=== PATIENT | female | born 1985 | race Hispanic/Latino ===

== ENCOUNTER 2017-01-19 11:44 | Emergency (ER) | payer MEDICAID ==
[2017-01-19 11:45] VITALS: BMI 41.1
[2017-01-19 12:06] VITALS: BP 120/74; PULSE 70; RESP 18; TEMP 98.1; O2SAT 98
--- NOTE | 2017-01-19 14:42 | ED PDOC ---
HPI: Back Chief Complaint (Nursing): Female Genitourinary Chief Complaint (Provider): , 10 weeks gestation, back pain, lower abdominal pain History Per: Patient History/Exam Limitations: no limitations Onset/Duration Of Symptoms: Hrs (Today when waking up) Current Symptoms Are (Timing): Still Present Full Body Front + Back: 1 - Pain 2 - Radiation 3 - radiation Quality Of Discomfort: Sharp Severity: Moderate Pain Scale Rating Of: 5 Previous Symptoms: None Exacerbating Factor(s): Movement Additional Complaint(s): Pt states she also had some spotting today. Pt concerned about UTI becuase she reports similar pain 2 weeks ago and was told she had UTI. Pts previous culture was negative. Pt had 7 week IUP on previous US and has follow-up with OB in 5 days Past Medical History Reviewed: Historical Data, Nursing Documentation, Vital Signs Vital Signs: Last Vital Signs Temp 98.1 F 01/19/17 12:03 Pulse 70 01/19/17 12:03 Resp 18 01/19/17 12:03 BP 120/74 01/19/17 12:03 Pulse Ox 98 01/19/17 12:03 - Medical History PMH: No Chronic Diseases Denies: Depression - Surgical History Surgical History: No Surg Hx - Family History Family History: States: Unknown Family Hx - Living Arrangements Living Arrangements: With Family - Social History Current smoker - smoking cessation education provided: No Alcohol: None Drugs: Denies - Home Medications Home Medications: Ambulatory Orders Medication Instructions Recorded Nitrofurantoin Macrocrystals 100 mg PO BID #13 cap 12/29/16 [Macrobid] - Allergies Allergies/Adverse Reactions: Allergies Allergy/AdvReac Type Severity Reaction Status Date / Time No Known Allergies Allergy Verified 01/19/17 12:03 Review of Systems ROS Statement: Except As Marked, All Systems Reviewed And Found Negative Gastrointestinal: Negative for: Nausea, Vomiting, Abdominal Pain, Diarrhea Genitourinary Female: Positive for: Vaginal Bleeding, Pelvic Pain Musculoskeletal: Positive for: Back Pain Physical Exam - Reviewed Nursing Documentation Reviewed: Yes Vital Signs Reviewed: Yes - Physical Exam Appears: Positive for: Well, Non-toxic, No Acute Distress Head Exam: Positive for: ATRAUMATIC, NORMAL INSPECTION, NORMOCEPHALIC Skin: Positive for: Normal Color, Warm, DRY Eye Exam: Positive for: Normal appearance ENT: Positive for: Normal ENT Inspection Neck: Positive for: Normal, Painless ROM Cardiovascular/Chest: Positive for: Regular Rate, Rhythm Respiratory: Positive for: Normal Breath Sounds. Negative for: Accessory Muscle Use Gastrointestinal/Abdominal: Positive for: Normal Exam, Bowel Sounds, Soft. Negative for: Tenderness Back: Positive for: Normal Inspection Extremity: Positive for: Normal ROM Neurologic/Psych: Positive for: Alert, Oriented - Laboratory Results Result Diagrams: 01/19/17 14:55 01/19/17 14:55 - ECG O2 Sat by Pulse Oximetry: 98 Medical Decision Making Medical Decision Making: type O (+) Disposition - Clinical Impression Clinical Impression: Abdominal pain in - Patient ED Disposition Is Patient to be Admitted: No Counseled Patient/Family Regarding: Diagnosis, Need For Followup - Disposition Referrals: [facility] [Outside] [facility] [Outside] Disposition: Routine/Home Disposition Time: 18:19 Condition: GOOD Additional Instructions: Please follow-up with OB. Instructions: Abdominal Pain in (ED)
[2017-01-19 15:41] LABS: BASO % 0.3 % (0.0-2.0); EOS # 0.2 K/uL (0.0-0.7); HEMATOCRIT 39.6 % (34.0-47.0); LYMPH # 2.2 K/uL (1.0-4.3); LYMPH % 25.3 % (20.0-40.0); MEAN CELL VOLUME 90.7 fl (81.0-99.0); MEAN CORPUSCULAR HEMOGLOBIN 30.2 pg (27.0-31.0); MEAN CORPUSCULAR HGB CONC 33.3 g/dL (33.0-37.0); MEAN PLATELET VOLUME 8.6 fl (7.2-11.7); MONO # 0.6 K/uL (0.0-0.8); MONO % 6.8 % (0.0-10.0); NEUT # 5.6 K/uL (1.8-7.0); NEUT % 65.6 % (50.0-75.0); WHITE BLOOD COUNT 8.5 K/uL (4.8-10.8)
[2017-01-19 15:46] LABS: ALKALINE PHOSPHATASE 69 U/L (38-126); ALT/SGPT 31 U/L (9-52); AST/SGOT 27 U/L (14-36); BILIRUBIN,TOTAL 0.3 mg/dl (0.2-1.3); BLOOD UREA NITROGEN 14 mg/dl (7-17); CARBON DIOXIDE 23 mmol/L (22-30); CHLORIDE 104 mmol/L (98-107); GFR AFRICAN-AMERICAN > 60; GLUCOSE,RANDOM 92 mg/dL (65-105); POTASSIUM 4.2 MMOL/L (3.6-5.0); SODIUM 139 mmol/l (132-148); TOTAL PROTEIN 6.9 G/DL (6.3-8.2)
[2017-01-19 15:58] LABS: PARTIAL THROMBOPLASTIN TIME 25.7 SECONDS (23.3-32.5)
[2017-01-19 16:55] LABS: RBC URINE 1 /hpf (0-3); URINE BACTERIA FEW (<OCC); URINE BILIRUBIN NEGATIVE (NEGATIVE); URINE BLOOD NEGATIVE (NEGATIVE); URINE COLOR YELLOW (YELLOW); URINE GLUCOSE (UA) NEG (Normal); URINE KETONE NEGATIVE (NEGATIVE); URINE LEUKOCYTE ESTERASE NEG Leu/uL (Negative); URINE PROTEIN NEGATIVE (NEGATIVE); URINE UROBILINOGEN 0.2-1.0 mg/dL (0.2-1.0); WBC URINE 1 /hpf (0-5)
== END 2017-01-19 18:28 | disposition home or self-care (01) ==
LOC: H.ER 11:44
DX: O26.891 Other specified pregnancy related conditions, first trimester (principal); Z3A.10 10 weeks gestation of pregnancy

== ENCOUNTER 2017-04-07 23:23 | Emergency (ER) | payer MEDICAID ==
[2017-04-08 00:29] VITALS: BMI 41.1
== END 2017-04-08 01:55 | disposition home or self-care (01) ==
LOC: H.EROB2 23:23
DX: O26.852 Spotting complicating pregnancy, second trimester (principal); Z3A.21 21 weeks gestation of pregnancy

== ENCOUNTER 2017-05-28 00:30 | Emergency (ER) | payer MEDICAID ==
[2017-05-28 01:28] VITALS: BMI 42.6
[2017-05-28 02:44] LABS: SQUAMOUS EPITHIAL 3 /hpf (0-5); URINE BACTERIA RARE (<OCC); URINE BILIRUBIN NEGATIVE (NEGATIVE); URINE BLOOD NEGATIVE (NEGATIVE); URINE CLARITY CLOUDY (Clear); URINE COLOR YELLOW (YELLOW); URINE GLUCOSE (UA) NEG (Normal); URINE LEUKOCYTE ESTERASE LARGE Leu/uL (Negative); URINE NITRATE NEGATIVE (NEGATIVE); URINE PROTEIN NEGATIVE (NEGATIVE); URINE UROBILINOGEN 0.2-1.0 mg/dL (0.2-1.0)
--- NOTE | 2017-05-28 06:22 | US ---
EXAM: US Uterus transabdominal, Limited CLINICAL HISTORY: 32 years old, female; Pain; Abdominal pain; Right lower quadrant; ; Patient HX: Abd pain; Additional info: Cervical length TECHNIQUE: Real-time transabdominal ultrasound of the maternal uterus (limited) with image documentation. COMPARISON: No relevant prior studies available. FINDINGS: Fetus: Single live intrauterine gestation. cardiac activity detected. Estimated gestational age of 31 weeks 2 days by biparietal diameter. No gross anomaly is appreciated. Position: Cephalic. Cervix: No cervical dilatation or effacement. Cervical length = 5.8 cm. Adnexa: Ovaries not visualized. No adnexal masses. Free fluid: No significant free fluid. IMPRESSION: 1. Single live intrauterine gestation. EXAM: US Uterus transvaginal, Limited CLINICAL HISTORY: 32 years old, female; Pain; Abdominal pain; Right lower quadrant; ; Patient HX: Abd pain; Additional info: Cervical length TECHNIQUE: Real-time transvaginal ultrasound of the maternal uterus (limited) with image documentation. COMPARISON: No relevant prior studies available. FINDINGS: Fetus: Single live intrauterine gestation. cardiac activity detected. Estimated gestational age of 31 weeks 2 days by biparietal diameter. No gross anomaly is appreciated. Position: Cephalic. Cervix: No cervical dilatation or effacement. Cervical length = 5.8 cm. Adnexa: Ovaries not visualized. No adnexal masses. Free fluid: No significant free fluid. IMPRESSION: 1. Single live intrauterine gestation. EXAM: US Abdomen Limited, Appendix CLINICAL HISTORY: 32 years old, female; Pain; Abdominal pain; Right lower quadrant; ; Patient HX: Abd pain; Additional info: Cervical length TECHNIQUE: Real-time ultrasound of the right lower quadrant with image documentation. COMPARISON: No relevant prior studies available. FINDINGS: Appendix: Not visualized. Free fluid: No significant free fluid. IMPRESSION: 1. Nonvisualization of appendix.
--- NOTE | 2017-05-28 06:59 | OBHP ---
Datetime: 05/28/2017 01:30 IP Chief Complaint Other: RLQ pain IP Admit Plan: Observation/Evaluation; Discharge home Admit Comment, IP Provider: CC: "I have pain in my abdomen" HPI: patient is a 32 YO @ 30 2/7 wks comes to [facility] for RLQ abdomen pain. per nnamdi t pain started 11PM on 05/28/17. She describes pain as irregular, it comes and goes, rates it as a 4/10 in pain scale. Patient also notes that she is on her feet all day at work. She endorses good m ovement, no blood noted,no LOF, and denies n/v/d. Last visit to MD was tuesday. 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 Cervix is closed on exam, patient in NAD, monitor catagory I and stable. Patient currently being observed for irratation and contration on monitor. -Given PO fluids -UA and UC sent to lab, follow up with results -observe and reassess Sophie MONTERO OB Hospitalist Addendum: Pt seen and examined by me. Agree w/ above. 32 yo at 30+2 wks w / c/o RLQ pain that started at 11pm, denies nausea, vomiting, and diarrhea. Pt denies dysuria. VE c losed/ at 01:20am. Pt reports that she felt better after PO hydration. NST reactive. [place] rev ealed ctxns. U/s: cervix was closed, 5.8 cm long. Pt discharged home w/ PTL precautions. (ES) Pelvic Type - PN: Adequate Extremities - PN: Normal Abdomen - PN: Normal Back - PN: Not Done Breast - PN: Not Done Lungs - PN: Normal Heart - PN: Normal Thyroid - PN: Not Done Neurologic - PN: Normal HEENT - PN: Normal General - PN: Normal FHR - Baseline A Provider: 130 Membranes, Provider: Intact Gestation - Est Wks by US: 30.2 Vital Signs Provider: Reviewed IP Chief Complaint: Other NICHD Variability Prov Fetus A: Moderate 6-25bpm NICHD Accel Fetus A IP Provider: 15X15 FHR Category Provider Fetus A: Category I Dilatation, Provider: 0 Effacement, Provider: 50 Station, Provider: -3 Genitourinary Exam: Normal DTRs - PN: Not Done
--- NOTE | 2017-05-28 11:44 | OBDCSUM ---
Datetime: 05/28/2017 07:02 Discharged to, Provider: Home Follow up at, Provider: [facility] Disch Instr Activity: Normal activity Disch Instr Diet: Regular Discharge Time: 05/28/2017 07:03 Follow up in weeks, Provider: 06/06/2017 as scheduled Disch Referrals: None Disch Activity Restrictions: No lifting Discharge Diagnosis Prov Other: RLQ pain at 30+ weeks
[2017-05-28 12:31] VITALS: BP 104/45; PULSE 70; RESP 18
== END 2017-05-28 07:00 | disposition home or self-care (01) ==
LOC: H.EROB2 00:30 → H.EROB 01:08 → H.EROB2 07:00
DX: O26.893 Other specified pregnancy related conditions, third trimester (principal); O24.410 Gestational diabetes mellitus in pregnancy, diet controlled; R10.31 Right lower quadrant pain; Z3A.30 30 weeks gestation of pregnancy

== ENCOUNTER 2017-07-29 18:51 | Emergency (ER) | payer MEDICAID ==
[2017-07-29 20:18] VITALS: BMI 41.3
--- NOTE | 2017-07-29 23:11 | US ---
EXAM: US Uterus, Limited CLINICAL HISTORY: 32 years old, female; Pain; Pain indication: Possible labor pain; ; Additional info: 39 w , possible labor TECHNIQUE: Real-time ultrasound of the maternal uterus (limited) with image documentation. COMPARISON: No relevant prior studies available. FINDINGS: biophysical profile is performed. breathing score: 2 tone score: 2 movement score: 2 Amniotic fluid score: 2 Total biophysical profile score: 8/8 Amniotic fluid index measures 13.06, adequate. A single intrauterine gestation is identified in cephalic presentation with the placenta posterior. cardiac activity is identified at a rate of 154 beats per minute. IMPRESSION: Limited ultrasound examination, as detailed above.
== END 2017-07-30 00:10 | disposition home or self-care (01) ==
LOC: H.EROB2 18:51 → H.L&D 23:00 → H.EROB2 07-30 00:10
DX: O47.1 False labor at or after 37 completed weeks of gestation (principal); O24.419 Gestational diabetes mellitus in pregnancy, unspecified control; Z3A.39 39 weeks gestation of pregnancy

== ENCOUNTER 2017-07-30 05:29 | Inpatient (IN) | payer MEDICAID ==
[2017-07-29 20:18] VITALS: BMI 41.3
--- NOTE | 2017-07-30 08:47 | OBHP ---
Datetime: 07/30/2017 06:08 IP Adm Impression: Term, intrauterine IP Admit Plan: Observation/Evaluation Extremities - PN: Normal Abdomen - PN: Normal Lungs - PN: Normal Heart - PN: Normal Neurologic - PN: Normal HEENT - PN: Normal General - PN: Normal FHR - Baseline A Provider: 140 Gestation - Est Wks by US: 39.2 EGA AdmitDate IP: 39.2 Vital Signs Provider: Reviewed; Within Normal Limits IP Chief Complaint: Uterine contractions; Vaginal bleeding NICHD Variability Prov Fetus A: Moderate 6-25bpm NICHD Accel Fetus A IP Provider: 15X15 FHR Category Provider Fetus A: Category I Dilatation, Provider: 2 Effacement, Provider: 20 Station, Provider: -4 Genitourinary Exam: Normal Datetime: 07/29/2017 20:30 Admit Comment, IP Provider: 32 yo F, with IUP at 39.1 weeks, confirmed by u/s at 7 weeks. complicated byA2 GDM. [place]: 08/04/17 care: [facility]. Last visit: today morning was told 1 cm dilated; last u/s wednesday 07/25. CC: pelvic pressure, contractions movement: yes Vaginal bleed: no Loss of fluids: no Last sexual activity: 3 days ago Past OBhx: (as per records) 2 NVD. 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 Denies medical history Denies surgical hx NKDA Medications: glyburide 2.5 BID, PNV. Social Hx: denies tobacco, alcohol, drug use. labs: GBS: neg HbsAg: neg HIV: neg Rubella: immune Blood type: O+ PPD: pos QF: pos GC/CL: neg Varicella: immune Zika: neg ROS: denies chest pain, shortness of breath, nausea, vomiting, diarrhea, dizziness, burning with u rination PE: Gen: AAO x3, no acute distres CV: S1/S2, RRR Resp: clear to auscultation bilaterally, normal resp effort Abd: gravid, +bowel sounds Extremities: no edema, no calf pain Plan: fingerstick biophysical profile observe and monitor for labor 23:30 Re-evaluated fingerstick :82 biophysical profile: 8. PEDRO 13.06, adequate. FHR: 154. Plan: D/c home with [facility] precautions. -Harini Rogers MDPGY1 OB Exam: Patient seen and examined by me. No change in cervical exam changed time of observation. Agree wit h above assessment and plan. DC home Labor precautions Follow-up is scheduled for next OB appointment Comments, ACOG Physical Exam: bpp8/8 IP Hx Assessment: The History has been Reviewed and is Current
--- NOTE | 2017-07-30 08:53 | OBHP ---
Datetime: 07/30/2017 06:08 Admit Comment, IP Provider: 32 yo F, with IUP at 39.2 weeks, confirmed by u/s at 7 weeks. complicated by GDM. [place]: 08/04/17 care: [facility]. Pt was in [facility] last night, was 2cm, 20% effaced, -4 station. Had BPP done: 8. Last clinic visit: yesterday morning; was told 1 cm dilated; last u/s wednesday 07/25. CC: pelvic pressure, contractions, vaginal bleeding movement: yes Vaginal bleed: yes, scant Loss of fluids: no Last sexual activity: 3 days ago Past OBhx: (as per records) 2 NVD. 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 Denies medical history Denies surgical hx NKDA Medications: glyburide 2.5 BID, PNV. Social Hx: denies tobacco, alcohol, drug use. labs: GBS: neg HbsAg: neg HIV: neg Rubella: immune Blood type: O+ PPD: pos QF: pos GC/CL: neg Varicella: immune Zika: neg Biophysical profile 10/6: 8, adequate PEDRO. ROS: denies chest pain, shortness of breath, nausea, vomiting, diarrhea, dizziness, burning with u rination PE: Gen: AAO x3, no acute distres CV: S1/S2, RRR Resp: clear to auscultation bilaterally, normal resp effort Abd: gravid, +bowel sounds Extremities: no edema, no calf pain Plan: [place] and monitor for labor -Harini Rogers MDPGY1 OB hospitalist addendum: Patient seen and examined by me repeat exam at 840 DC home Labor precautions EGA AdmitDate IP: 39.2
--- NOTE | 2017-07-30 12:20 | OBPN ---
Datetime: 07/30/2017 12:16 IP Progress Impression: Reassuring heart rate IP Procedures: Sterile Vag Exam IP Progress Plan: Continue present management; Anesthesia consult Membranes, Provider: Intact Contraction Comments Provider: q5min FHR - Baseline A Provider: 130s-140s IP Progress Note Comment: Pt requesting epidural. Will contact anesthesia. Both MWB/FWB reassuring at this time. Continue current management. Vital Signs Provider: Reviewed; Within Normal Limits NICHD Accel Fetus A IP Provider: 15X15 FHR Category Provider Fetus A: Category I NICHD Variability Prov Fetus A: Moderate 6-25bpm Dilatation, Provider: 5 Effacement, Provider: 90 Station, Provider: -2 NICHD Decel Fetus A IP Provider: None Datetime: 07/30/2017 06:08 Gestation - Est Wks by US: 39.2
[2017-07-30] MEDS ORDERED: Lactated Ringer's 500 ML IV SCH (12:30)
[2017-07-30] MEDS ORDERED: Lactated Ringer's 1,000 ML IV SCH (12:30)
[2017-07-30] MEDS ORDERED: Lidocaine 1% Inj (20ml) ONE (12:41)
[2017-07-30] MEDS ORDERED: Oxytocin 30 units/LR 500ML 30 U/500 ML BAG IV SCH (12:45)
[2017-07-30 12:54] LABS: BASO % 0.1 % (0.0-2.0); EOS % 0.1 % (0.0-4.0); LYMPH # 1.4 K/uL (1.0-4.3); LYMPH % 10.8 % (20.0-40.0); MEAN CELL VOLUME 91.6 fl (81.0-99.0); MEAN CORPUSCULAR HEMOGLOBIN 29.8 pg (27.0-31.0); MEAN CORPUSCULAR HGB CONC 32.6 g/dL (33.0-37.0); MEAN PLATELET VOLUME 9.3 fl (7.2-11.7); MONO # 0.6 K/uL (0.0-0.8); MONO % 4.9 % (0.0-10.0); NEUT # 10.5 K/uL (1.8-7.0); NEUT % 84.1 % (50.0-75.0); RED CELL DISTRIBUTION WIDTH 14.9 % (11.5-14.5); WHITE BLOOD COUNT 12.5 K/uL (4.8-10.8)
[2017-07-30] MEDS ORDERED: Oxycodone/Acetaminophen 5/325 mg Tab PO PRN ×2 (13:27→15:51)
[2017-07-30] MEDS ORDERED: Benzocaine/Menthol SPRAY TOP PRN ×2 (13:27→15:51)
--- NOTE | 2017-07-30 17:07 | RAD ---
HISTORY: Positive PPD and Quantiferon COMPARISON: None available. TECHNIQUE: Chest PA and lateral FINDINGS: Examination limited by habitus. LUNGS: No focal consolidation. Please note that chest x-ray has limited sensitivity for the detection of pulmonary masses. PLEURA: No significant pleural effusion identified. No definite pneumothorax . CARDIOVASCULAR: The cardiomediastinal silhouette appears within normal limits of size. OSSEOUS STRUCTURES: No acute osseous abnormality identified. VISUALIZED UPPER ABDOMEN: Unremarkable. OTHER FINDINGS: None. IMPRESSION: No focal consolidation, significant pleural effusion, or definite pneumothorax identified.
[2017-07-30] MEDS ORDERED: Pneumococcal 23-Valent Vaccine IM ONE (20:00)
[2017-07-30] MEDS ORDERED: Influenza Vaccine 18yr & older 0.5 ML/45 MCG SYR IM ONE (23:30)
[2017-07-31 07:24] LABS: HEMATOCRIT 40.8 % (34.0-47.0); MEAN CELL VOLUME 91.1 fl (81.0-99.0); MEAN CORPUSCULAR HEMOGLOBIN 29.9 pg (27.0-31.0); MEAN CORPUSCULAR HGB CONC 32.8 g/dL (33.0-37.0); RED CELL DISTRIBUTION WIDTH 14.9 % (11.5-14.5); WHITE BLOOD COUNT 12.3 K/uL (4.8-10.8)
--- NOTE | 2017-07-31 10:20 | OBADHP ---
Datetime: 07/30/2017 12:16 Admit Comment, IP Provider: 32 yo F, with IUP at 39.2 weeks, confirmed by U/S at 7 weeks wit h [place] 08/04/17. Patient presented to [facility] with contractions last night and was found to be 2cm dilate d, 20% effaced, and -4 station. BPP: 8. This morning she was checked and was found to be 4cm dilated, complaining of pelvic pressure, contractions, and vaginal bleeding. Reports good movement. Den ies loss of fluid. Last sexual activity 3 days ago Past OBhx: 2 NVD, full term. 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 Denies medical history Denies surgical hx NKDA Medications: glyburide 2.5 BID, PNV. Social Hx: denies tobacco, alcohol, drug use. Physical Exam: General: Patient seen lying in bed, intermittently distressed. Alert and Oriented Cardiac: Normal S1, S2, no murmurs Pulm: Clear to auscultation BL; no crackles. 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 Pelvic Type - PN: Adequate Extremities - PN: Normal Abdomen - PN: Normal Back - PN: Normal Breast - PN: Normal Lungs - PN: Normal Heart - PN: Normal Thyroid - PN: Normal Neurologic - PN: Normal HEENT - PN: Normal General - PN: Normal FHR - Baseline A Provider: 130s-140s Membranes, Provider: Intact Contraction Comments Provider: q5min IP Hx Assessment: The History has been Updated Vital Signs Provider: Reviewed; Within Normal Limits IP Chief Complaint: Uterine contractions NICHD Variability Prov Fetus A: Moderate 6-25bpm NICHD Accel Fetus A IP Provider: 15X15 FHR Category Provider Fetus A: Category I NICHD Decel Fetus A IP Provider: None Dilatation, Provider: 5 Effacement, Provider: 90 Station, Provider: -2 Genitourinary Exam: Normal DTRs - PN: Normal EGA AdmitDate IP: 39.2 IP Adm Impression: Term, intrauterine ; Active labor IP Admit Plan: Admit to unit Datetime: 07/30/2017 06:08 Gestation - Est Wks by US: 39.2 Datetime: 07/29/2017 20:30 Comments, ACOG Physical Exam: bpp8/8 Datetime: 05/28/2017 01:30 IP Chief Complaint Other: RLQ pain
--- NOTE | 2017-07-31 10:25 | OBDS ---
DELIVERY PERSONNEL Delivery Doctor: Pablo Potts MD Kayak Maker: Ofelia LIAO/Silvio MATERNAL INFORMATION Delivery Anesthesia: None Medications in Delivery: pitocin 20 units Estimated Blood Loss (ml): 200 Placenta Cultured: No Maternal Complications: None Provider Comments: Normal spontaneous vaginal delivery. Patient delivered viable male with Apgars of 9 and 9 at one and 5 minutes respectively. Inf ant delivered via DIOGO position. No lacerations, perineum intact. Placenta delivered spontaneously. Stanislav woodnt tolerated delivery well. Uterus firm and appropriately hemostatic following delivery. No compli cations. Estimated blood loss 200 mL LABOR SUMMARY EDC: 08/04/2017 00:00 No. Babies in Womb: 1 Attempted: No Labor Anesthesia: None LABOR INFORMATION Reason for Induction: Not Applicable Onset of Labor: 07/30/2017 07:00 Complete Dilatation: 07/30/2017 13:05 Oxytocin: N/A Group B Beta Strep: N/A Steroids Given: None Reason Steroids Not Administered: Not Applicable MEMBRANES Membranes Rupture Method: Artificial Rupture of Membranes: 07/30/2017 13:05 Length of Rupture (hrs): 0.07 Amniotic Fluid Color: Clear Amniotic Fluid Amount: Moderate Amniotic Fluid Odor: Normal STAGES OF LABOR Stage 1 hrs: 6 Stage 1 min: 5 Stage 2 hrs: 0 Stage 2 min: 4 Stage 3 hrs: 0 Stage 3 min: 6 Total Time in Labor hrs: 6 Total Time in Labor min: 15 VAGINAL DELIVERY Episiotomy: None Laceration Extension: N/A Laceration Type: None Initial Vag Sponge Count: 15 Final Vag Sponge Count: 15 Initial Vag Sharps Count: 0 Final Vag Sharps Count: 0 Sponge Count Correct: Yes Sharps Count Correct: Yes BABY A INFORMATION Delivery Date/Time: 07/30/2017 13:09 Method of Delivery: Vaginal Born in Route : No : N/A Forceps: N/A Vacuum Extraction: N/A Shoulder Dystocia : No SHOULDER DYSTOCIA BABY A Delivery Date/Time: 07/30/2017 13:09 PRESENTATION/POSITION BABY A Presentation: Cephalic Cephalic Presentation: Vertex Vertex Position: Left Occipital Anterior Breech Presentation: N/A PLACENTA INFORMATION BABY A Placenta Delivery Time : 07/30/2017 13:15 Placenta Method of Delivery: Spontaneous Placenta Status: Delivered SCORES BABY A Heart Rate 1 min: >100 bpm Resp Effort 1 min: Good Cry Reflex Irritability 1 min: Cough or Sneeze or Pulls Away Muscle Tone 1 min: Active Motion Color 1 min: Body [place], Extremities Blue SCORE 1 MIN: 9 Heart Rate 5 min: >100 bpm Resp Effort 5 min: Good Cry Reflex Irritability 5 min: Cough or Sneeze or Pulls Away Muscle Tone 5 min: Active Motion Color 5 min: Body [place], Extremities Blue SCORE 5 MIN: 9 INFANT INFORMATION BABY A Gestational Age at Delivery: 39.2 Gestational Status: Term Outcome : Liveborn Condition : Stable Infant Sex: Male WEIGHT/LENGTH BABY A Birthweight (gms): 3730 Infant Weight (lb): 8 Infant Weight (oz): 4 CORD INFORMATION BABY A No. Cord Vessels: 3 Nuchal Cord : Around Neck x1, Loose Cord Blood Taken: Yes Suction: Mouth; Nose ASSESSMENT BABY A Complications: None Physical Findings at Delivery: Within Normal Limits Infant Respirations: Appears Normal Animal Shelter Clerk/ALS Called : No Transferred To: Nursery
[2017-07-31] MEDS ORDERED: Pneumococcal 23-Valent Vaccine IM ONE (14:00)
[2017-08-01] MEDS ORDERED: Pneumococcal 23-Valent Vaccine IM ONE (09:00)
--- NOTE | 2017-08-01 10:24 | OBDCSUM ---
Datetime: 08/01/2017 08:56 Discharged to, Provider: Home Follow up at, Provider: [facility] Disch Instr Activity: Normal activity; May be up to bathroom; May be up for meals; May Shower Disch Instr Diet: Regular Discharge Instructions, Provider: Routine instructions given Discharge Diagnosis, Provider: Term Delivered Discharge Time: 08/01/2017 11:30 Follow up in weeks, Provider: 4 to 6 weeks Disch Referrals: None Contraception discussed, Prov: No Disch Activity Restrictions: No lifting; No sexual activity; Nothing in vagina - [place], tampon s, douche Discharge Comment, Provider: 32 y/o now s/p uncomplicated NVD on 07/30/2017 @ 13:05. Term ma le. Patient and doing well. Discharge instructions: Encourage and ambulation PNV 1 tab PO/day Ibuprofen 600 mg 1 tab PRN if moderate pain. Continue taking ferrous sulfate 325 mg once daily, co lace 100 mg twice daily. Ambulate with caution, nothing per vagina, no heavy lifting, avoid stairs. If excessive bleeding, or fever without relief from tylenol, go to ED. F/u at [facility] in 4-6 weeks for patient, and 2-3 days for baby. -[place] PGY 1
--- NOTE | 2017-08-01 10:24 | OBPPN ---
Datetime: 08/01/2017 08:54 PP Pain Prov: Within normal limits PP Nausea Prov: Denies PP Flatus Prov: Yes PP BM Prov: Yes PP Heart Prov: Normal PP Lungs Prov: Normal PP Abdomen/Uterus Prov: Normal PP Lochia Prov: Normal PP Vulva/Perineum Prov: Normal PP Impression Prov: Normal progression PP Plan Prov: Discharge PP Progress Note Prov: 32 yo F, now s/p NVD on 07/30/17, PPD2. Seen and examined at bedside. Patient had uneventful overnight. Reports mild pelvic pain that is controlled with pain medications. Out of bed and ambulating, without dizziness. Voiding freely and passing gas. Lochia less than mense s. Tolerating PO diet. Feeding baby via breast/bottle. Denies fevers, chills, nausea/vomiting/diarrhe a, chest pain/shortness of breath, calf pain, lightheadedness. PE: GEN: A_O, resting comfortably in bed, no acute distress Lung: clear to auscultation bilaterally, normal respiratory effort CVS: S1/S2+, RRR Abd: +BS, firm fundus below umbilicus. EXT: no edema, negative Santhosh's, calves non-tender. Assessment: 32 yo s/p uncomplicated NVD on 07/30/17. Doing well on PPD2. Plan: D/c home with prescriptions for ibuprofen 600mg PRN for pain, ferrous sulfate 325 mg daily f or 30 days, and colace 100 mg twice daily for 30 days. Encourage breast feeding and ambulation. -[email or web address] Addendum by Dr. Perez: Patient evaluated independently and I agree with the above. Patient is PPD #2, discharge home, discharge instructions reviewed Vital Signs Provider PP: Reviewed; Within Normal Limits Datetime: 07/31/2017 07:53 PP Breasts Prov: Normal PP CVA Tenderness Prov: Not Done PP Extremities Prov: Normal PP C/S Incision Prov: Not Applicable PP Progress Prov: Normal PP Comments Phys Exam Prov: Uterus: firm at level umbilicus
[2017-08-01 20:08] VITALS: BP 102/64; PULSE 68; RESP 18; TEMP 97.6
== END 2017-08-01 15:30 | disposition home or self-care (01) | DRG 372 ==
LOC: H.EROB2 05:29 → H.L&D 12:21 → H.OB/GYN 15:47
PROVIDERS: ADMIT Obstetrics & Gynecology; ATTEND Obstetrics & Gynecology
PROC: 10E0XZZ Delivery of Products of Conception, External Approach (ICD-10-PCS; principal; 2017-07-30)
PROC: 4A1HXCZ Monitoring of Products of Conception, Cardiac Rate, External Approach (ICD-10-PCS; 2017-07-30)
DX: O24.425 Gestational diabetes mellitus in childbirth, controlled by oral hypoglycemic drugs (principal); O69.81X0 Labor and delivery complicated by cord around neck, without compression, not applicable or unspecified; Z37.0 Single live birth; Z3A.39 39 weeks gestation of pregnancy

== ENCOUNTER 2017-11-29 17:44 | Emergency (ER) | payer MEDICAID, OTHER ==
[2017-11-29 17:45] VITALS: BMI 41.3
[2017-11-29 18:01] VITALS: BP 111/67; PULSE 65; RESP 16; TEMP 98; O2SAT 100
--- NOTE | 2017-11-29 19:11 | ED PDOC ---
HPI: CCC, URI, Sore Throat Time Seen by Provider: 11/29/17 18:06 Chief Complaint (Nursing): Flu-like Symptoms Chief Complaint (Provider): Influenza-like illness History Per: Patient History/Exam Limitations: no limitations Onset/Duration Of Symptoms: Days (x2) Current Symptoms Are (Timing): Still Present Additional Complaint(s): 32 year old female presents to the ER complaining of flu-like symptoms including cough, congestion, sore throat, runny nose, chills, decreased appetite , and body aches, since yesterday morning. Patient states cough is productive of yellow sputum. Denies any associated hemoptysis, shortness of breath, rash, nausea, or vomiting. She does report 3 episodes of watery, non-bloody diarrhea. Patient states she has elected not to take any medications as she is breast feeding. Both of her children were diagnosed with the flu last week. No recent travel. PMD: [facility] clinic in [place] Past Medical History Reviewed: Historical Data, Nursing Documentation, Vital Signs Vital Signs: Last Vital Signs Temp 98.0 F 11/29/17 17:55 Pulse 65 11/29/17 17:55 Resp 16 11/29/17 17:55 BP 111/67 11/29/17 17:55 Pulse Ox 100 11/29/17 19:45 - Medical History PMH: No Chronic Diseases Denies: Depression, Diabetes, HTN - Surgical History Surgical History: No Surg Hx - Family History Family History: States: No Known Family Hx - Social History Current smoker - smoking cessation education provided: No Alcohol: None Drugs: Denies - Home Medications Home Medications: Ambulatory Orders Medication Instructions Recorded Pnv No.95/Ferrous Fum/Folic AC 1 tab PO DAILY 05/28/17 [ Vitamin Tablet] Glyburide/Metformin HCl 2.5 tab PO BID 30 Days #60 tab NS 07/30/17 [Glyburide-Metformin 2.5-500 mg] Acetaminophen [Tylenol Extra 1,000 mg PO Q6 PRN #100 tablet 11/29/17 Strength] Ibuprofen [Motrin Tab] 600 mg PO Q8 PRN #60 tab 11/29/17 Oseltamivir [Tamiflu] 75 mg PO BID #10 cap 11/29/17 - Allergies Allergies/Adverse Reactions: Allergies Allergy/AdvReac Type Severity Reaction Status Date / Time No Known Allergies Allergy Verified 01/19/17 12:03 Review of Systems ROS Statement: Except As Marked, All Systems Reviewed And Found Negative (as per HPI, otherwise negative) Constitutional: Positive for: Chills, Other (Body aches, decreased appetite) ENT: Positive for: Nose Discharge, Nose Congestion, Throat Pain Respiratory: Positive for: Cough, Sputum. Negative for: Shortness of Breath, Hemoptysis Gastrointestinal: Positive for: Diarrhea (x1 episode). Negative for: Nausea, Vomiting Skin: Negative for: Rash Physical Exam - Reviewed Nursing Documentation Reviewed: Yes Vital Signs Reviewed: Yes - Physical Exam Appears: Positive for: Non-toxic, In Acute Distress (tired appearing) Head Exam: Positive for: ATRAUMATIC, NORMOCEPHALIC Skin: Positive for: Warm, Dry Eye Exam: Positive for: EOMI, PERRL ENT: Negative for: Pharyngeal Erythema, Tonsillar Exudate Neck: Positive for: Painless ROM, Supple Cardiovascular/Chest: Positive for: Regular Rate, Rhythm, Chest Non Tender. Negative for: Murmur Respiratory: Positive for: Normal Breath Sounds. Negative for: Wheezing, Respiratory Distress Gastrointestinal/Abdominal: Positive for: Soft. Negative for: Tenderness Back: Positive for: Normal Inspection. Negative for: Decreased ROM Extremity: Positive for: Normal ROM. Negative for: Deformity Lymphatic: Negative for: Adenopathy (cervical) Neurologic/Psych: Positive for: Alert. Negative for: Motor/Sensory Deficits - ECG O2 Sat by Pulse Oximetry: 100 (RA) Pulse Ox Interpretation: Normal Medical Decision Making Medical Decision Making: Initial Impression: Influenza-like illness, viral illness Time: 18:53 Initial Plan: * Urine dipstick * Urine * Urinalysis * Influenza A B * Tamiflu 75 mg P * Toradol 30 mg IM * Tylenol 975 mg PO * Reevaluation Labs reviewed, flu is negative. Patient is stable for discharge home. Provided with rx for tamiflu, motrin, and tylenol. Counseling was provided and all questions were answered regarding diagnosis and need for follow up with the clinic. There is agreement to discharge plan. Return if symptoms persist or worsen. Scribe Attestation: Documented by Luci Perry, acting as a scribe for Yanelis Dukes MD Provider Scribe Attestation: All medical record entries made by the Scribe were at my direction and personally dictated by me. I have reviewed the chart and agree that the record accurately reflects my personal performance of the history, physical exam, medical decision making, and the department course for this patient. I have also personally directed, reviewed, and agree with the discharge instructions and disposition. Disposition - Clinical Impression Clinical Impression: Influenza-like illness, Viral syndrome - Patient ED Disposition Is Patient to be Admitted: No Counseled Patient/Family Regarding: Studies Performed, Diagnosis, Need For Followup, Rx Given - Disposition Referrals: [facility] [Outside] - 12/05/17 Disposition: Routine/Home Disposition Time: 19:44 Condition: STABLE Prescriptions: Acetaminophen [Tylenol Extra Strength] 1,000 mg PO Q6 PRN #100 tablet PRN Reason: FEVER OR PAIN Ibuprofen [Motrin Tab] 600 mg PO Q8 PRN #60 tab PRN Reason: Pain, Moderate (4-7) Oseltamivir [Tamiflu] 75 mg PO BID #10 cap Instructions: Viral Syndrome (ED), Nutrition Tips for Relief of Diarrhea (ED) Forms: [facility] School/Work Excuse Print Language: ICELANDIC - POA Present On Arrival: None
[2017-11-29 19:31] LABS: SQUAMOUS EPITHIAL 19 /hpf (0-5); URINE BACTERIA RARE (<OCC); URINE BILIRUBIN NEGATIVE (NEGATIVE); URINE BLOOD SMALL (NEGATIVE); URINE CLARITY CLOUDY (Clear); URINE COLOR YELLOW (YELLOW); URINE GLUCOSE (UA) NEG (Normal); URINE LEUKOCYTE ESTERASE LARGE Leu/uL (Negative); URINE NITRATE NEGATIVE (NEGATIVE); URINE PROTEIN NEGATIVE (NEGATIVE); URINE UROBILINOGEN 0.2-1.0 mg/dL (0.2-1.0)
== END 2017-11-29 21:00 | disposition home or self-care (01) ==
LOC: H.ER 17:44
DX: J11.1 Influenza due to unidentified influenza virus with other respiratory manifestations (principal)
CPT/HCPCS: 81003; 81025; 87804; 96372; 99282; J1885

== ENCOUNTER 2018-12-25 15:22 | Emergency (ER) | payer MEDICAID, OTHER ==
[2018-12-25 16:06] VITALS: BMI 41.0
--- NOTE | 2018-12-25 17:29 | OBDCSUM ---
Datetime: 12/25/2018 16:50 Discharged to, Provider: Home Follow up at, Provider: [facility] Disch Instr Activity: Normal activity Disch Instr Diet: Restricted, specify Discharge Diet restrict Prov: GDM Discharge Instructions, Provider: Routine instructions given Discharge Time: 12/25/2018 16:50 Follow up in weeks, Provider: 12/26/18 Disch Referrals: None Discharge Diagnosis Prov Other: suprapubic pain in , 36 wks
--- NOTE | 2018-12-25 17:29 | OBHP ---
Datetime: 12/25/2018 17:04 IP Adm Impression: , intrauterine IP Admit Plan: Observation/Evaluation Admit Comment, IP Provider: Michelet:[id number] 33 y/o at EGA of 30.6 weeks based on LMP of 05/23/18, [place] 02/27/19 presented due to vaginal p ain. Reports intermittent sharp vaginal pain that started yesterday am, last night and this am. Repor ts light bleeding yesterday AM. Denies LOF. Reports good movement. Denies headaches, blurry v ision, chest pain, SOB, dizziness, nausea, vomiting, diarrhea, constipation or dysuria. Provider: Dr. Lucero [facility] PMHx: Gest DM Meds: PNV, Metformin 500mg BID FMHx: Denies Allergies: NKDA SurgHx: Denies SOCHx: Denies Smoking/Tobacco/Drugs use OBGYN: Gest DM, No hx of STD's , last pap 12/19/18 normal-denies HPV Labs: Unknown no records Assessment 33 y/o at EGA of 30.6 weeks based on LMP of 05/23/18, [place] 02/27/19 presented due to vaginal p ain. Plan: -Observe in OB ED -Monitor contractions, VS -Monitor FHR tracing 150's, moderate variability, 15x15 accelerations, no decels -Accucheck 111 -Pain control with Tylenol -Abdominal binder as needed Case reviewed and discussed with attending Jaja Holguin PGY1 Addendum by Dr. Perez: I have evaluated the patient independently and I agree with the above Extremities - PN: Normal Abdomen - PN: Normal Lungs - PN: Normal Heart - PN: Normal HEENT - PN: Normal General - PN: Normal FHR - Baseline A Provider: 150's Membranes, Provider: Intact Comments, ACOG Physical Exam: -Monitor FHR tracing 150's, moderate variability, 15x15 accelerations, no decels IP Hx Assessment: The History has been Reviewed and is Current EGA AdmitDate IP: 30.6 Vital Signs Provider: Reviewed; Within Normal Limits IP Chief Complaint: Maternal discomfort NICHD Variability Prov Fetus A: Moderate 6-25bpm NICHD Accel Fetus A IP Provider: 15X15 FHR Category Provider Fetus A: Category I NICHD Decel Fetus A IP Provider: None
[2018-12-25 21:25] VITALS: BP 86/63; PULSE 74; RESP 18; TEMP 98.1; O2SAT 100
== END 2018-12-25 16:44 | disposition home or self-care (01) ==
LOC: H.EROB2 15:22
DX: O26.93 Pregnancy related conditions, unspecified, third trimester (principal); R10.2 Pelvic and perineal pain; Z3A.30 30 weeks gestation of pregnancy

== ENCOUNTER 2019-02-12 12:44 | Emergency (ER) | payer OTHER ==
[2019-02-12 13:33] VITALS: BMI 42.3
--- NOTE | 2019-02-12 14:24 | OBHP ---
Datetime: 02/12/2019 14:18 IP Adm Impression: Term, intrauterine IP Admit Plan: Observation/Evaluation; Discharge home Admit Comment, IP Provider: Patient is a @ 37.6 wks with uterine contractions. Patient has a history of gestational diabetes, on metformin. Otherwise previous x 3, no other antepartum issu es, no medical problems, no previous surgeries. No allergies, only takes vitamins and Metfor min. Patient reports contractions about every 10 mins, no leaking, small amount of vaginal bleeding, +FM. VE = FT/50/-3, FHR = 145 mod amanda, +accels, no decels. TOCO = ctxning q 10 mins. Patient ruled ou t for labor, labor precautions given, f/u in clinic tomorrow Pelvic Type - PN: Adequate Extremities - PN: Normal Abdomen - PN: Normal Back - PN: Normal Breast - PN: Normal Lungs - PN: Normal Heart - PN: Normal Thyroid - PN: Normal Neurologic - PN: Normal HEENT - PN: Normal General - PN: Normal FHR - Baseline A Provider: 145 Contraction Comments Provider: q 10 mins EGA AdmitDate IP: 37.6 Vital Signs Provider: Reviewed; Within Normal Limits IP Chief Complaint: Uterine contractions NICHD Variability Prov Fetus A: Moderate 6-25bpm NICHD Accel Fetus A IP Provider: 15X15 NICHD Decel Fetus A IP Provider: None Dilatation, Provider: FT Effacement, Provider: 50 Station, Provider: -3 Genitourinary Exam: Normal DTRs - PN: Normal Datetime: 12/25/2018 17:04 Comments, ACOG Physical Exam: GEN: Lying in bed NAD HEENT: NCAT CARD: RRR + S1S2 RESP: CTA, no wheezing, rales or rhonchi GI: Gravid, + BS, no tenderness to palpation EXT: No edema, no calf tenderness Speculum not performed Monitor FHR tracing 150's, moderate variability, 15x15 accelerations, no decels
--- NOTE | 2019-02-12 14:26 | OBDCSUM ---
Datetime: 02/12/2019 13:51 Discharged to, Provider: Home Follow up at, Provider: [facility] Disch Instr Activity: Normal activity Disch Instr Diet: Regular Discharge Instructions, Provider: Routine instructions given Discharge Time: 02/12/2019 13:51 Follow up in weeks, Provider: 02/13/2019 at 1100 Disch Referrals: None Contraception discussed, Prov: Yes Discharge Diagnosis Prov Other: False labor
[2019-02-12 18:17] VITALS: BP 118/69; PULSE 83; RESP 18; TEMP 98.2; O2SAT 99
== END 2019-02-12 13:53 | disposition home or self-care (01) ==
LOC: H.EROB2 12:44 → H.EROB 13:20 → H.EROB2 13:53
DX: O26.93 Pregnancy related conditions, unspecified, third trimester (principal); R10.2 Pelvic and perineal pain; Z3A.37 37 weeks gestation of pregnancy

== ENCOUNTER 2019-02-13 02:21 | Inpatient (IN) | payer OTHER ==
[2019-02-13 02:56] VITALS: BMI 41.8
[2019-02-13] MEDS ORDERED: Lactated Ringer's 1,000 ML IV ONE (02:56)
[2019-02-13] MEDS ORDERED: Oxytocin 30 UNIT in NS 500 ml 30 UNITS/500 ML BAG IV ONE ×4 (03:00→13:06)
[2019-02-13 03:20] LABS: BASO % 0.4 % (0.0-2.0); EOS # 0.1 K/uL (0.0-0.7); EOS % 1.3 % (0.0-4.0); HEMOGLOBIN 12.9 g/dL (12.0-16.0); LYMPH # 2.2 K/uL (1.0-4.3); LYMPH % 32.2 % (20.0-40.0); MEAN CELL VOLUME 90.5 fl (81.0-99.0); MEAN CORPUSCULAR HGB CONC 34.3 g/dL (33.0-37.0); MEAN PLATELET VOLUME 8.8 fl (7.2-11.7); MONO # 0.4 K/uL (0.0-0.8); MONO % 5.8 % (0.0-10.0); NEUT # 4.2 K/uL (1.8-7.0); NEUT % 60.3 % (50.0-75.0); NRBC % 0.1 % (0.0-0.0); RBC 4.16 Mil/uL (3.80-5.20); RED CELL DISTRIBUTION WIDTH 14.3 % (11.5-14.5); WHITE BLOOD COUNT 6.9 K/uL (4.8-10.8)
[2019-02-13 03:28] LABS: ALBUMIN 3.3 g/dL (3.5-5.0); ALT/SGPT 26 U/L (9-52); AST/SGOT 24 U/L (14-36); BLOOD UREA NITROGEN 14 mg/dl (7-17); CALCIUM 9.2 mg/dL (8.4-10.2); GFR NON-AFRICAN AMERICAN > 60
[2019-02-13 03:35] VITALS: O2SAT 100
[2019-02-13] MEDS: Lactated Ringer's 1,000 ML IV SCH ×2 (03:40→13:01)
[2019-02-13] MEDS ORDERED: Fentanyl/Bupivacaine HCl 250 ML EPI ONE (03:46)
--- NOTE | 2019-02-13 07:33 | OBADHP ---
Datetime: 02/13/2019 03:10 Admit Comment, IP Provider: 33 yo 38wk with GDM present to [facility] Due to contraction q6min for si nce 17:00 02/12/19, Pt report losing mucus blug. OTherwise no active bleeding or watergush. Pt report good movement. PCP: Nicola PMH: GDM MED: Metformin BID, PNV PSH: none OBGYN: 3NVD, 1ab PFH: mom DM Social: denies smoke, drink or drug use 3:00 Assessment and plan 33 yo 38wk with GDM present to [facility] Due to contraction. Admitted to unit for active labor Vital wnl [place] contraction q5min strip reactive Cervix 6, 50%, -3 Fetus vertex verified with US CBC/CMP, Accucheck LR 1L at 999 LR 1L at 125 Pit for after placenta delivery NEED TO CALL [facility] in morning for patient information Anesthesia on casefor anesthesia Sabri PGY1 Case discussed with Dr Perez Addendum by Dr. Perez: I have evaluated the patient independently and I agree with the above Pelvic Type - PN: Adequate Extremities - PN: Normal Abdomen - PN: Normal Back - PN: Normal Breast - PN: Not Done Lungs - PN: Normal Heart - PN: Normal Thyroid - PN: Normal Neurologic - PN: Normal HEENT - PN: Normal General - PN: Normal Presentation-Admit: Vertex FHR - Baseline A Provider: 145 Membranes, Provider: Bulging Comments, ACOG Physical Exam: Heart no extra heart sound lung clear abd nontender BS+ cervix 6,50,-3 Gestation - Est Wks by US: 38.0 Vital Signs Provider: Reviewed; Within Normal Limits IP Chief Complaint: Uterine contractions NICHD Variability Prov Fetus A: Moderate 6-25bpm NICHD Accel Fetus A IP Provider: 15X15 FHR Category Provider Fetus A: Category I NICHD Decel Fetus A IP Provider: None Dilatation, Provider: 6 Effacement, Provider: 50 Station, Provider: -3 Genitourinary Exam: Normal DTRs - PN: Not Done EGA AdmitDate IP: 38.0 IP Adm Impression: Term, intrauterine ; Active labor; Intact Membranes IP Admit Plan: Admit to unit; Initiate labor protocol Datetime: 02/13/2019 03:02 Contraction Comments Provider: q5min Datetime: 12/25/2018 17:04 IP Hx Assessment: The History has been Reviewed and is Current
[2019-02-13] MEDS ORDERED: Lidocaine 1% Inj (20ml) ONE (07:37)
--- NOTE | 2019-02-13 07:51 | OBPN ---
Datetime: 02/13/2019 07:45 IP Progress Impression: Normal progression of labor IP Informed Consent Obtain: Vaginal Delivery IP Procedures: Sterile Vag Exam IP Progress Plan: Augmentation Membranes, Provider: Ruptured FHR - Baseline A Provider: 145 IP Progress Note Comment: Patient evaluated, feeling comfortable. VE = 8/100/0 FHR = 145 mod amanda, +accels, prolonged deceleration noted from baseline to 120 bpm for about 4 mins with return to baseline TOCO = ctxning q 2-4 mins A/P 1. Patient has made little cervical change, will start Pitocin for augmentation 2. CEFM and TOCO 3. Re-evalaute as needed Vital Signs Provider: Reviewed; Within Normal Limits NICHD Accel Fetus A IP Provider: 15X15 NICHD Variability Prov Fetus A: Moderate 6-25bpm Dilatation, Provider: 8 Effacement, Provider: 100 Station, Provider: 0 NICHD Decel Fetus A IP Provider: Prolonged Datetime: 02/13/2019 03:10 Gestation - Est Wks by US: 38.0 Presentation-Admit: Vertex FHR Category Provider Fetus A: Category I Datetime: 02/13/2019 03:02 Contraction Comments Provider: q5min
--- NOTE | 2019-02-13 07:54 | OBHP ---
Datetime: 02/13/2019 07:45 FHR - Baseline A Provider: 145 Membranes, Provider: Ruptured Vital Signs Provider: Reviewed; Within Normal Limits NICHD Variability Prov Fetus A: Moderate 6-25bpm NICHD Accel Fetus A IP Provider: 15X15 NICHD Decel Fetus A IP Provider: Prolonged Dilatation, Provider: 8 Effacement, Provider: 100 Station, Provider: 0 Datetime: 02/13/2019 03:10 IP Adm Impression: Term, intrauterine ; Active labor; Intact Membranes IP Admit Plan: Admit to unit; Initiate labor protocol Pelvic Type - PN: Adequate Extremities - PN: Normal Abdomen - PN: Normal Back - PN: Normal Breast - PN: Not Done Lungs - PN: Normal Heart - PN: Normal Thyroid - PN: Normal Neurologic - PN: Normal HEENT - PN: Normal General - PN: Normal Presentation-Admit: Vertex Comments, ACOG Physical Exam: Heart no extra heart sound lung clear abd nontender BS+ cervix 6,50,-3 Gestation - Est Wks by US: 38.0 EGA AdmitDate IP: 38.0 IP Chief Complaint: Uterine contractions FHR Category Provider Fetus A: Category I Genitourinary Exam: Normal DTRs - PN: Not Done Datetime: 02/13/2019 03:02 Admit Comment, IP Provider: 33 yo 38wk with GDM present to [facility] Due to contraction q6min for si nce 17:00 02/12/19, Pt report losing mucus blug. OTherwise no active bleeding or watergush. Pt report good movement. PCP: [facility] PMH: GDM MED: Metformin BID, PNV PSH: none OBGYN: 3NVD, 1ab PFH: mom DM Social: denies smoke, drink or drug use 3:00 Assessment and plan 33 yo 38wk with GDM present to [facility] Due to contraction. Will be admitted for active labor Vital wnl [place] contraction q5min strip reactive Cervix 6, 50%, -3 Admit patient to L_D for active labor Sabri PGY1 Case discussed with Dr Perez Addendum by Dr. Perez: I have evaluated the patient independently and I agree with the above Contraction Comments Provider: q5min
[2019-02-13] MEDS: Oxytocin 30 UNIT in NS 500 ml 30 UNITS/500 ML BAG IV ONE ×4 (08:10→12:23)
--- NOTE | 2019-02-13 08:59 | OBPN ---
Datetime: 02/13/2019 08:41 IP Progress Impression: Normal progression of labor IP Informed Consent Obtain: Vaginal Delivery IP Procedures: Sterile Vag Exam IP Progress Plan: Continue present management Membranes, Provider: Ruptured Contraction Comments Provider: q 2-4 mins FHR - Baseline A Provider: 145 IP Progress Note Comment: Patient evaluated, still 8cm dilated. IUPC placed, Pitocin started for may mentation CEFM and TOCO FHR = 145 mod amanda, +accels, early deces A/P 1. Patient has very little cervical progression. IUPC placed, start augmentation 2. Will check finger sticks every hour while in labor 3. CEFM and TOCO Vital Signs Provider: Reviewed; Within Normal Limits NICHD Variability Prov Fetus A: Moderate 6-25bpm Dilatation, Provider: 8 Effacement, Provider: 100 Station, Provider: 0 NICHD Decel Fetus A IP Provider: Early
[2019-02-13] MEDS ORDERED: Bupivacaine HCl 0.5% PF (30 ml) Inj ONE (10:25)
--- NOTE | 2019-02-13 12:34 | OBDS ---
MATERNAL INFORMATION Provider Comments: Delivered a live baby girl at 12:19 PM the baby was bulb suctioned on the perineu m then transferred to maternal chest. The cord was clamped and cut 3 vessels noted cord blood was ob tained and sent to the lab. Placenta was delivered at 12:22 PM intact quantified blood loss was 100 cc there were no vaginal lacerations the baby went to the well baby nursery with Apgars of weighing LABOR SUMMARY EDC: 02/27/2019 00:00 No. Babies in Womb: 1 MEMBRANES Membranes Rupture Method: Spontaneous Amniotic Fluid Color: Clear Amniotic Fluid Amount: Small
[2019-02-13] MEDS ORDERED: Benzocaine/Menthol SPRAY TOP PRN ×2 (13:04→15:55)
[2019-02-13] MEDS ORDERED: OXYTOCIN/0.9 % NS 20 UNIT/1,000 ML BAG IV ONE (13:04)
[2019-02-13] MEDS ORDERED: Oxycodone/Acetaminophen 5/325 mg Tab PO PRN ×2 (13:04→15:55)
[2019-02-14 06:44] LABS: BASO % 0.3 % (0.0-2.0); EOS # 0.1 K/uL (0.0-0.7); LYMPH # 1.9 K/uL (1.0-4.3); LYMPH % 17.3 % (20.0-40.0); MEAN CELL VOLUME 91.7 fl (81.0-99.0); MEAN CORPUSCULAR HEMOGLOBIN 31.1 pg (27.0-31.0); MEAN CORPUSCULAR HGB CONC 33.9 g/dL (33.0-37.0); MONO # 0.6 K/uL (0.0-0.8); MONO % 5.2 % (0.0-10.0); NEUT # 8.2 K/uL (1.8-7.0); NEUT % 76.2 % (50.0-75.0); NRBC % 0.2 % (0.0-0.0); RBC 3.87 Mil/uL (3.80-5.20); RED CELL DISTRIBUTION WIDTH 14.1 % (11.5-14.5); WHITE BLOOD COUNT 10.7 K/uL (4.8-10.8)
--- NOTE | 2019-02-14 07:24 | OBPPN ---
Datetime: 02/14/2019 06:05 PP Pain Prov: Within normal limits PP Nausea Prov: Denies PP Flatus Prov: Yes PP BM Prov: No PP Breasts Prov: Not Done PP Heart Prov: Normal PP Lungs Prov: Normal PP Abdomen/Uterus Prov: Normal PP Lochia Prov: Normal PP Vulva/Perineum Prov: Normal PP CVA Tenderness Prov: Normal PP Extremities Prov: Normal PP C/S Incision Prov: Not Applicable PP Progress Prov: Normal PP Comments Phys Exam Prov: See note PP Impression Prov: Normal progression PP Plan Prov: Continue present management PP Progress Note Prov: Pt is a 33 YO , PPD 1 s/p on 02/13/19. Patient was Seen and examined at bedside. No complaints today, pain controlled. Patient is ambulating to bathroom. She have passed flatus but no BM . She is tolerating regular diet. Lochia equal to menses in volume. Denies fevers, chills, dizziness, chest pain, SOB, N/V/D, hematuria or dysuria. VS: wnl Gen: NAD HEENT: NCAT Cardio: + S1S2, RRR Lungs: CTA B/L, no wheezes Abd: soft, appropriate tenderness to palpation, + BS, Uterus firm below level of umbilicus Ext: No edema, calves non tender Assessment: Pt is a 33 YO , PPD 1 s/p on 02/13/19 with normal progression. Plan: - and ambulation encouraged. - Ibuprofen 600 mg 1 tab Q 6h PRN mild pain -Acetaminophen 650 PO Q6h PRN pain -Continue vitamin Case discussed with attending Manju PGY1 OB Hospitalist Addendum: Pt seen and examined by me. Agree a/ above. PPD 1 s/p , doing well, breast feeding. Continue current care. (ES) IP PP Procedures: None Vital Signs Provider PP: Reviewed; Within Normal Limits
[2019-02-15 20:56] VITALS: BP 122/63; PULSE 65; RESP 20; TEMP 98.4
== END 2019-02-15 14:30 | disposition home or self-care (01) | DRG 372 ==
LOC: H.EROB2 02:21 → H.L&D 02:56 → H.OB/GYN 17:23
PROVIDERS: ADMIT Obstetrics & Gynecology; ATTEND Obstetrics & Gynecology
PROC: 10E0XZZ Delivery of Products of Conception, External Approach (ICD-10-PCS; principal; 2019-02-13)
PROC: 4A1HXCZ Monitoring of Products of Conception, Cardiac Rate, External Approach (ICD-10-PCS; 2019-02-13)
DX: O76 Abnormality in fetal heart rate and rhythm complicating labor and delivery (principal); O24.429 Gestational diabetes mellitus in childbirth, unspecified control; Z37.0 Single live birth; Z3A.38 38 weeks gestation of pregnancy